=== PATIENT | male | born 1975 | race American Indian/Alaskan Native ===

== ENCOUNTER 2016-10-30 14:03 | Emergency (ER) | payer SELFPAY ==
[2016-10-30] MEDS ORDERED: NACL 0.9% 500 ML IR ONE (14:25)
[2016-10-30] MEDS ORDERED: NACL 0.9% IR ONE ×2 (14:25→16:55)
--- NOTE | 2016-10-30 16:12 | XRay Report ---
FINAL REPORT EXAM: XR FOOT 2V LT HISTORY: left foot pain trauma TECHNIQUE: Two views left foot. PRIORS: None currently available. FINDINGS: Comminuted fracture at the tip of the 1st distal phalanx identified. Soft tissue swelling noted. Displaced fragments noted. There is no acute dislocation. Joints in anatomical alignment. No significant arthrosis. There is no cortical destruction to suggest osteomyelitis. There are no suspicious osseous lesions. There are no radiopaque foreign objects. IMPRESSION: 1st distal phalanx fracture.
[2016-10-30] MEDS ORDERED: ZOFRAN IV ONE (16:55)
[2016-10-30] MEDS ORDERED: MORPHINE IV ONE (16:55)
[2016-10-30] MEDS ORDERED: NACL 0.9% 1000 ML 1,000 ML IV ONE (16:55)
[2016-10-30] MEDS ORDERED: BOOSTRIX IM ONE (16:55)
[2016-10-30] MEDS ORDERED: ANCEF/NS 1 GM/50 ML 1 GM/50 ML BAG IV ONE (16:55)
--- NOTE | 2016-10-30 16:59 | Emergency Department Report ---
ED Extremity Problem HPI - General Chief complaint: Wound/Laceration Stated complaint: LEFT FOOT INJURY/LAC Time Seen by Provider: 10/30/16 16:55 Source: patient Mode of arrival: Ambulatory Limitations: No Limitations - History of Present Illness Initial comments: PT c/o L great toe injury. PT states he was mowing the grass (at his rental house) and he slipped down hill and mower went over left foot. PT was wearing shoes. PT states the mower cut the shoe and his toe. PT states he came straight to the ED. PT c/o L great toe pain and left 2nd toe pain. PT is not utd on his Tdap MD Complaint: other (foot injury ) -: Sudden, hour(s) Location: left, toe (great ) History of Same: No Severity scale (0 -10): 10 Quality: constant Consistency: constant Improves with: nothing Worsens with: weight bearing, walking, palpation Associated Symptoms: denies other symptoms. denies: chest pain - Related Data Previous Rx's Medication Instructions Recorded Last Taken Type Cephalexin [Keflex] 500 mg PO Q6HR #40 capsule 10/30/16 Unknown Rx HYDROcodone/APAP 5-325 [[place] 1 each PO Q6HR PRN #20 tablet 10/30/16 Unknown Rx 5/325] Allergies Allergy/AdvReac Type Severity Reaction Status Date / Time No Known Allergies Allergy Verified 10/30/16 14:36 ED Review of Systems ROS: Stated complaint: LEFT FOOT INJURY/LAC Other details as noted in HPI Comment: All other systems reviewed and negative Constitutional: no symptoms reported Cardiovascular: denies: chest pain, syncope Gastrointestinal: denies: nausea, vomiting Musculoskeletal: as per HPI Skin: as per HPI Neurological: abnormal gait (due to toe injury ) ED Past Medical Hx - Past Medical History Previous Medical History?: No - Surgical History Past Surgical History?: No - Social History Smoking Status: Never Smoker Substance Use Type: None, Alcohol - Medications Home Medications: Home Medications Medication Instructions Recorded Confirmed Last Taken Type Cephalexin [Keflex] 500 mg PO Q6HR #40 capsule 10/30/16 Unknown Rx HYDROcodone/APAP 5-325 [[place] 1 each PO Q6HR PRN #20 tablet 10/30/16 Unknown Rx 5/325] ED Physical Exam - General Limitations: No Limitations General appearance: alert, anxious - Head Head exam: Present: atraumatic, normocephalic, normal inspection - Eye Eye exam: Present: normal appearance, PERRL, EOMI. Absent: conjunctival injection - ENT ENT exam: Present: normal exam, mucous membranes moist, normal external ear exam - Neck Neck exam: Present: normal inspection, full ROM - Respiratory Respiratory exam: Present: normal lung sounds bilaterally. Absent: chest wall tenderness, accessory muscle use - Cardiovascular Cardiovascular Exam: Present: regular rate, normal rhythm - Extremities Exam Extremities exam: Present: tenderness - Expanded Lower Extremity Exam Left Lower Leg exam: Present: normal inspection, full ROM Ankle exam: Present: normal inspection, full ROM Foot/Toe exam: Present: tenderness, swelling (to L great and 2nd toe, + brusing ), laceration, ecchymosis, nail avulsion. Absent: normal inspection (mangled distal toe injury. + grass in wound ), full ROM, subungual hematoma Neuro vascular tendon exam: Present: no vascular compromise. Absent: pulse deficit Gait: Positive: antalgic - Back Exam Back exam: Present: normal inspection, full ROM - Neurological Exam Neurological exam: Present: alert, oriented X3 - Psychiatric Psychiatric exam: Present: normal affect, normal mood - Skin Skin exam: Present: warm, dry. Absent: intact ED Course Vital Signs 10/30/16 10/30/16 10/30/16 14:15 17:30 18:14 Temperature 98.8 F Pulse Rate 94 H 70 Respiratory 20 16 20 Rate Blood Pressure 132/91 Blood Pressure 155/84 [Left] O2 Sat by Pulse 98 100 Oximetry - Reevaluation(s) Reevaluation #1: 10/30/16 17:22 Dr Workman aware of pt and XR results, advises antibiotics and wound care. Reevaluation #2: 10/30/16 19:33 PT aware of xr findings and need for close orthopedic follow up. PT given strict return precautions. - Laceration /Wound Repair Left Distal Toe Wound Location: lower extremity (L great toe ) Wound's Depth, Shape: irregular, nail-avulsed, contused tissue Wound Explored: foreign body removed (multiple pieces of grass and debris removed) Irrigated w/ Saline (ccs): 400 Betadine Prep?: Yes Volume Anesthetic (ccs): 8 (marcaine .5% ) Wound Debrided: minimal Wound Repaired With: sutures Suture Size/Type: 4:0, proline Number of Sutures: 4 Layer Closure?: No Sterile Dressing Applied?: Yes Progress: digital block was performed to achieve good pain control. wound was flushed with 400 cc ns. wound was explored, multiple fbs removed. L great toe wound irregular. Nail has been broken at base and avulsed. nail bed mangled. 2 sutures placed on each side of toe to help secure site. - Pulse Oximetry Interpretation Digit-Finger Initial Pulse Oximetry Readin Actions Taken: none ED Medical Decision Making - Radiology Data Radiology results: report reviewed, image reviewed xr foot - R distal phalanx fx - Differential Diagnosis fx, contusion, laceration, avulsion Critical Care Time: No Critical care attestation.: If time is entered above; I have spent that time in minutes in the direct care of this critically ill patient, excluding procedure time. ED Disposition Clinical Impression: Toe laceration Qualifiers: Encounter type: initial encounter Toe: great toe Damage to nail status: with damage Foreign body presence: with foreign body Laterality: left Qualified Code( s): S91.222A - Laceration with foreign body of left great toe with damage to nail, initial encounter Toe fracture, left Qualifiers: Encounter type: initial encounter Toe: great toe Fracture type: open Phalanx: distal Fracture alignment: displaced Qualified Code(s): S92.422B - Displaced fracture of distal phalanx of left great toe, initial encounter for open fracture Disposition: - TO HOME OR SELFCARE Is pt being admited?: No Does the pt Need Aspirin: No Condition: Stable Instructions: Suture Care (ED), Laceration (ED), Toe Fracture (ED) Additional Instructions: 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 Call ortho tomorrow (CATHERINE) to schedule follow up appointment Return to the ED in 2 days for recheck of wound, if you have not seen ortho return to the ED if you notice pus draining from your toe, your toe becomes red , feels hot, or develop fevers and chills follow up with PCP in 3-5 days for bp recheck Prescriptions: Cephalexin [Keflex] 500 mg PO Q6HR #40 capsule HYDROcodone/APAP 5-325 [[place] 5/325] 1 each PO Q6HR PRN #20 tablet PRN Reason: Pain Referrals: KIARA DUQUE MD [Staff Physician] - 3-5 Days [facility], [Primary Care Provider] - 3-5 Days IRENE ALEXANDER MD [Staff Physician] - 3-5 Days Forms: Work/School Release Form(ED) Time of Disposition: 19:40
[2016-10-30] MEDS ORDERED: MARCAINE 0.5% INFILTRATI STA (17:03)
[2016-10-30 18:15] VITALS: BP 155/84
[2016-10-30] MEDS ORDERED: TRIPLE ANTIBIOTIC TP ONE (18:54)
== END 2016-10-30 20:12 | disposition home or self-care (01) ==
LOC: ED 14:03
DX: S91.222A Laceration with foreign body of left great toe with damage to nail, initial encounter (principal); S92.422B Displaced fracture of distal phalanx of left great toe, initial encounter for open fracture; W01.0XXA Fall on same level from slipping, tripping and stumbling without subsequent striking against object, initial encounter; Y93.9 Activity, unspecified; Y92.9 Unspecified place or not applicable; Y99.9 Unspecified external cause status
CPT/HCPCS: 12031; 73620; 90471; 90715; 96365; 96375; 99284; J0690; J2270; J2405; J7030; A6250